=== PATIENT | female | born 1970 ===

== ENCOUNTER 2020-09-28 15:04 | Outpatient (CLI) | payer OTHER | END 2020-09-28 16:11 | disposition home or self-care (01) | LOC: OFIC 805 15:04 | PROVIDERS: ATTEND Otolaryngology Otology & Neurotology | DX: R59.0 Localized enlarged lymph nodes (principal) ==

== ENCOUNTER 2020-09-29 07:35 | Outpatient (CLI) | payer OTHER | END 2020-09-29 07:41 | disposition home or self-care (01) | LOC: LAB 07:35 | PROVIDERS: ATTEND Otolaryngology Otology & Neurotology | DX: R22.1 Localized swelling, mass and lump, neck (principal); R59.0 Localized enlarged lymph nodes ==

== ENCOUNTER → 2020-09-29 | Outpatient (CLI) | payer OTHER | END | disposition home or self-care (01) | LOC: TOM 08:57 | PROVIDERS: ATTEND Otolaryngology Otology & Neurotology | DX: R22.1 Localized swelling, mass and lump, neck (principal); R59.0 Localized enlarged lymph nodes ==

== ENCOUNTER 2022-08-18 14:09 | Emergency (ER) | payer OTHER ==
[~2022-08-18] VITALS: Ht 154.9 cm; Wt 86.2 kg
[2022-08-18] MEDS ORDERED: FLOVENT HFA12 G1 IH (19:04)
[2022-08-18] MEDS ORDERED: PROAIR RESPICL90 MCG IH (19:04)
[2022-08-18] MEDS ORDERED: MOLNUPIRAVIR (200 MG PO (19:04)
== END 2022-08-18 19:10 | disposition home or self-care (01) ==
LOC: ER 14:09
DX: U07.1 COVID-19 (principal); Z88.6 Allergy status to analgesic agent; Z88.0 Allergy status to penicillin